=== PATIENT | female | born 1955 ===

== ENCOUNTER → 2019-01-03 22:05 | Outpatient (ROUT) | payer OTHER, SELFPAY ==
[2019-01-03 23:33] LABS: Free T3, Triiodothyronine Free 4.19 pg/mL (2.77-5.27); Free T4, Direct Thyroxine 1.23 ng/dL (0.78-2.19); Triiodothryronine T3 Uptake 31.5 % (23.5-40.5)
[2019-01-03 23:46] LABS: Thyroid Stimulating Hormone 1.24 uIU/mL (0.47-4.68)
[2019-01-07 15:27] LABS: Anti Thyroglobulin Antibody < 1 IU/mL (< 2); Thyroid Peroxidase Antibodies 3 IU/mL (< 9)
[2019-01-07 16:22] LABS: Triiodothyronine T3 Total 118 ng/dL (76-181)
== END ==
PROVIDERS: Visit Provider Family Medicine
DX: E03.9 Hypothyroidism, unspecified (principal)
CPT/HCPCS: 36415; 84439; 84443; 84479; 84480; 84481; 86376; 86800